=== PATIENT | female | born 1950 | race Caucasian/White ===

== ENCOUNTER 2022-05-12 23:22 | Inpatient (IN) | payer MEDICARE ==
[~2022-05-12] VITALS: Ht 162.6 cm; Wt 114.0 kg
[2022-05-12 23:30] VITALS: BP 121/59
[2022-05-12 23:45] VITALS: BP 102/38
[2022-05-12] MEDS ORDERED: BENZONATATE150 MG PO (23:55)
[2022-05-12] MEDS ORDERED: ALLERGY RELIEF 25 MG PO (23:56)
[2022-05-12] MEDS ORDERED: SERTRALINE50 MG PO (23:57)
[2022-05-12] MEDS ORDERED: ATENOLOL50 MG PO (23:57)
[2022-05-12] MEDS ORDERED: PRAVASTATIN40 MG PO (23:58)
[2022-05-12] MEDS ORDERED: FENOFIBRATE145 MG PO (23:59)
[2022-05-13] VITALS (10 sets, daily range): BP systolic 103–136; BP diastolic 43–82
[2022-05-13] MEDS ORDERED: GLIPIZIDE ER5 MG PO
[2022-05-13] MEDS ORDERED: PIOGLITAZONE HC30 MG PO (00:01)
[2022-05-13] MEDS ORDERED: ELIQUIS5 MG PO (00:02)
[2022-05-13] MEDS ORDERED: VITAMIN C1000 MG (00:03)
[2022-05-13] MEDS ORDERED: VITAMIN D325 MCG PO (00:05)
[2022-05-13] MEDS ORDERED: FISH OIL1000 M2 (00:06)
[2022-05-13 00:23] LABS: BILIRUBIN, TOTAL 0.5 mg/dL (0.0-1.4); CREATININE 1.2 mg/dL (0.5-1.0); MAGNESIUM 1.6 mg/dL (1.6-2.3); POTASSIUM 4.2 mmol/l (3.5-5.1); TOTAL PROTEIN 7.5 g/dL (6.3-8.2)
[2022-05-13 00:54] LABS: BASO% 1.2 % (0-3); HEMATOCRIT 25.7 % (37.0-47.0); HEMOGLOBIN 8.6 g/dl (12.0-16.0); IMMATURE GRANULOCYTES 1.7 % (0.0-5.0); MEAN CELL VOLUME 102.4 fL CALC (80.0-100.0); MEAN CORPUSCULAR HGB 34.3 pG CALC (26.0-32.0); MEAN CORPUSCULAR HGB CONC 33.5 g/dL CAL (32.0-36.0); NEUT# 0.6 thou/uL (2.00-7.15); NEUT% 34.6 % (42-76); RED BLOOD COUNT 2.51 mill/uL (4.20-5.60); RED CELL DISTRI WIDTH 15.8 % (11.5-15.5)
[2022-05-13 01:31] LABS: MONO% 40.5 % (2-13)
[2022-05-13 12:55] LABS: URINE BILIRUBIN - DIPSTICK NEGATIVE (NEGATIVE); URINE BLOOD DIPSTICK TRACE-INTACT (NEGATIVE); URINE COLOR YELLOW; URINE GLUCOSE - DIPSTICK 100 mg/dL (NEGATIVE); URINE KETONE TRACE mg/dL (NEGATIVE); URINE LEUK ESTERASE NEGATIVE (NEGATIVE); URINE PH 5.5 (4.5-8.0); URINE PROTEIN - DIPSTICK 100 mg/dL (NEG-TRACE); URINE SPECIFIC GRAVITY >=1.030
[2022-05-13 13:06] LABS: URINE NITRITE - DIPSTICK NEGATIVE (Negative)
[2022-05-13 13:12] LABS: URINE RBC 0-2 RBC/hpf (0-5); URINE WBC 0-2 WBC/hpf (0-5)
[2022-05-13 13:13] LABS: URINE SQUAMOUS EPITHELIAL CELL FEW EPI/hpf (0-FEW)
[2022-05-14 03:37] VITALS: BP 131/54
[2022-05-14 04:00] VITALS: BP 131/54
[2022-05-14 05:28] LABS: BASO% 0.4 % (0-3); HEMOGLOBIN 8.5 g/dl (12.0-16.0); IMMATURE GRANULOCYTES 1.7 % (0.0-5.0); LYMPH% 14.1 % (15-41); MEAN CORPUSCULAR HGB CONC 32.7 g/dL CAL (32.0-36.0); MONO% 20.9 % (2-13); NEUT# 2.98 thou/uL (2.00-7.15); NEUT% 62.9 % (42-76); RED BLOOD COUNT 2.5 mill/uL (4.20-5.60)
[2022-05-14 05:47] LABS: BUN 38 mg/dL (8-23); BUN/CREATININE RATIO 37 (12-20 (CALC)); CARBON DIOXIDE 19 mmol/l (22-30); CHLORIDE 107 mmol/l (95-108); GFR FOR AFR.AMER. > 60 ML/MIN (>=60 (CALC)); GFR OTHER RACES 55 ML/MIN (>=60 (CALC)); MAGNESIUM 1.9 mg/dL (1.6-2.3); SODIUM 139 mmol/l (137-146)
[2022-05-14 05:48] LABS: ANION GAP 19 (6-22 (CALC)); POTASSIUM 5.5 mmol/l (3.5-5.1)
[2022-05-14 06:15] VITALS: BP 104/49
[2022-05-14 10:22] VITALS: BP 107/49
[2022-05-14 14:46] VITALS: BP 134/44
[2022-05-14 20:23] VITALS: BP 115/46
[2022-05-15] VITALS (36 sets, daily range): BP systolic 71–136; BP diastolic 39–80
[2022-05-15 05:25] LABS: BASO% 0.2 % (0-3); HEMATOCRIT 26.2 % (37.0-47.0); HEMOGLOBIN 8.8 g/dl (12.0-16.0); IMMATURE GRANULOCYTES 2.1 % (0.0-5.0); LYMPH% 6.8 % (15-41); MEAN CELL VOLUME 101.9 fL CALC (80.0-100.0); MEAN CORPUSCULAR HGB 34.2 pG CALC (26.0-32.0); MEAN CORPUSCULAR HGB CONC 33.6 g/dL CAL (32.0-36.0); MONO% 10.6 % (2-13); NEUT# 8.46 thou/uL (2.00-7.15); NEUT% 80.3 % (42-76); RED BLOOD COUNT 2.57 mill/uL (4.20-5.60); RED CELL DISTRI WIDTH 16.3 % (11.5-15.5)
[2022-05-15 05:41] LABS: ANION GAP 16 (6-22 (CALC)); BUN 46 mg/dL (8-23); BUN/CREATININE RATIO 45 (12-20 (CALC)); CHLORIDE 107 mmol/l (95-108); GFR FOR AFR.AMER. > 60 ML/MIN (>=60 (CALC)); GFR OTHER RACES 55 ML/MIN (>=60 (CALC)); POTASSIUM 4.4 mmol/l (3.5-5.1); SODIUM 142 mmol/l (137-146)
[2022-05-15 05:48] LABS: CARBON DIOXIDE 23 mmol/l (22-30)
[2022-05-15] MEDS ORDERED: FOLIC ACID1 MG PO (08:15)
[2022-05-16] VITALS (83 sets, daily range): BP systolic 69–160; BP diastolic 13–78
[2022-05-16 05:28] LABS: BASO% 0.2 % (0-3); IMMATURE GRANULOCYTES 1.9 % (0.0-5.0); LYMPH% 4.9 % (15-41); MEAN CELL VOLUME 107.3 fL CALC (80.0-100.0); MEAN CORPUSCULAR HGB 34.3 pG CALC (26.0-32.0); MONO% 8.3 % (2-13); NEUT# 10.91 thou/uL (2.00-7.15); NEUT% 84.7 % (42-76); RED BLOOD COUNT 2.33 mill/uL (4.20-5.60); RED CELL DISTRI WIDTH 17.3 % (11.5-15.5)
[2022-05-16 08:34] LABS: ALBUMIN 3.6 g/dL (3.2-5.0); BILIRUBIN, TOTAL 0.5 mg/dL (0.0-1.4); CREATININE 2.3 mg/dL (0.5-1.0); TOTAL PROTEIN 6.6 g/dL (6.3-8.2)
[2022-05-16 08:35] LABS: POTASSIUM 5.8 mmol/l (3.5-5.1)
[2022-05-16 17:31] LABS: ALBUMIN 3.6 g/dL (3.2-5.0); CREATININE 2.4 mg/dL (0.5-1.0); POTASSIUM 5.8 mmol/l (3.5-5.1)
[2022-05-16 19:42] LABS: ALBUMIN 3.6 g/dL (3.2-5.0); CREATININE 3.3 mg/dL (0.5-1.0)
[2022-05-16 19:54] LABS: POTASSIUM 6.1 mmol/l (3.5-5.1)
[2022-05-17] VITALS (190 sets, daily range): BP systolic 57–143; BP diastolic 29–74
[2022-05-17 08:36] LABS: HEMATOCRIT 21.4 % (37.0-47.0); HEMOGLOBIN 7.2 g/dl (12.0-16.0); MEAN CELL VOLUME 102.4 fL CALC (80.0-100.0); MEAN CORPUSCULAR HGB 34.4 pG CALC (26.0-32.0); MEAN CORPUSCULAR HGB CONC 33.6 g/dL CAL (32.0-36.0); PLATELET COUNT 314 thou/uL (130-400); RED BLOOD COUNT 2.09 mill/uL (4.20-5.60); RED CELL DISTRI WIDTH 16.2 % (11.5-15.5)
[2022-05-17 09:10] LABS: IMMATURE GRANULOCYTES 6.7 % (0.0-5.0)
[2022-05-17 09:11] LABS: BAND 0 % (0-8); MANUAL DIFFERENTIAL YES
[2022-05-17 09:12] LABS: PLATELET ESTIMATE NORMAL
[2022-05-17 09:50] LABS: ALBUMIN 2.9 g/dL (3.2-5.0); CHLORIDE 103 mmol/l (95-108); CREATININE 3.1 mg/dL (0.5-1.0); GFR FOR AFR.AMER. 18 ML/MIN (>=60 (CALC)); GFR OTHER RACES 15 ML/MIN (>=60 (CALC)); MAGNESIUM 2.1 mg/dL (1.6-2.3); TOTAL PROTEIN 5.7 g/dL (6.3-8.2)
[2022-05-17 09:53] LABS: BUN/CREATININE RATIO 29 (12-20 (CALC)); SODIUM 133 mmol/l (137-146)
[2022-05-17 09:54] LABS: ALKALINE PHOSPHATASE 190 u/l (38-126); ANION GAP 18 (6-22 (CALC)); CARBON DIOXIDE 18 mmol/l (22-30); POTASSIUM 5.6 mmol/l (3.5-5.1)
[2022-05-17 09:55] LABS: BUN 91 mg/dL (8-23)
[2022-05-17 10:09] LABS: SGOT/AST 810 u/l (9-36)
[2022-05-17 18:44] LABS: CREATININE 2.7 mg/dL (0.5-1.0); POTASSIUM 4.7 mmol/l (3.5-5.1)
[2022-05-18] VITALS (49 sets, daily range): BP systolic 102–134; BP diastolic 50–85
[2022-05-18 05:55] LABS: HEMOGLOBIN 7.2 g/dl (12.0-16.0); MEAN CORPUSCULAR HGB 34.3 pG CALC (26.0-32.0); MEAN CORPUSCULAR HGB CONC 34.3 g/dL CAL (32.0-36.0); RED BLOOD COUNT 2.1 mill/uL (4.20-5.60); RED CELL DISTRI WIDTH 16.5 % (11.5-15.5)
[2022-05-18 06:29] LABS: ALBUMIN 3.3 g/dL (3.2-5.0); CREATININE 2.8 mg/dL (0.5-1.0); MAGNESIUM 2.4 mg/dL (1.6-2.3); POTASSIUM 4.7 mmol/l (3.5-5.1)
[2022-05-18 06:43] LABS: TOTAL PROTEIN 6.9 g/dL (6.3-8.2)
[2022-05-19] VITALS (49 sets, daily range): BP systolic 93–132; BP diastolic 50–79
[2022-05-19 06:32] LABS: ALBUMIN 2.7 g/dL (3.2-5.0); BILIRUBIN, TOTAL 1.1 mg/dL (0.0-1.4); CREATININE 2.5 mg/dL (0.5-1.0); MAGNESIUM 2.2 mg/dL (1.6-2.3); POTASSIUM 5.1 mmol/l (3.5-5.1)
[2022-05-19 06:35] LABS: TOTAL PROTEIN 5.4 g/dL (6.3-8.2)
[2022-05-19 06:46] LABS: BASO% 0.1 % (0-3); HEMATOCRIT 20.3 % (37.0-47.0); HEMOGLOBIN 7.4 g/dl (12.0-16.0); LYMPH% 3.4 % (15-41); MEAN CORPUSCULAR HGB 36.8 pG CALC (26.0-32.0); MEAN CORPUSCULAR HGB CONC 36.5 g/dL CAL (32.0-36.0); MONO% 7.9 % (2-13); NEUT# 16.44 thou/uL (2.00-7.15); RED BLOOD COUNT 2.01 mill/uL (4.20-5.60); RED CELL DISTRI WIDTH 17.8 % (11.5-15.5)
[2022-05-19 06:48] LABS: IMMATURE GRANULOCYTES 6.6 % (0.0-5.0)
[2022-05-20] VITALS (77 sets, daily range): BP systolic 95–131; BP diastolic 44–76
[2022-05-20 04:29] LABS: BASO% 0.1 % (0-3); HEMATOCRIT 20.8 % (37.0-47.0); HEMOGLOBIN 8.6 g/dl (12.0-16.0); LYMPH% 5.3 % (15-41); MEAN CELL VOLUME 101.5 fL CALC (80.0-100.0); MEAN CORPUSCULAR HGB CONC 41.3 g/dL CAL (32.0-36.0); MONO% 6.5 % (2-13); NEUT# 22.08 thou/uL (2.00-7.15); NEUT% 77.9 % (42-76); RED BLOOD COUNT 2.05 mill/uL (4.20-5.60); RED CELL DISTRI WIDTH 18.2 % (11.5-15.5)
[2022-05-20 04:30] LABS: IMMATURE GRANULOCYTES 10.2 % (0.0-5.0)
[2022-05-20 05:27] LABS: ALBUMIN 2.7 g/dL (3.2-5.0); CREATININE 2.1 mg/dL (0.5-1.0); MAGNESIUM 2.2 mg/dL (1.6-2.3); TOTAL PROTEIN 5.3 g/dL (6.3-8.2)
[2022-05-20 06:06] LABS: POTASSIUM 5.3 mmol/l (3.5-5.1)
[2022-05-20 07:22] LABS: C-REACTIVE PROTEIN 15.8 mg/dL (0-0.9)
[2022-05-21] VITALS (103 sets, daily range): BP systolic 77–192; BP diastolic 40–90
[2022-05-21 07:45] LABS: HEMATOCRIT 20.7 % (37.0-47.0); HEMOGLOBIN 8.3 g/dl (12.0-16.0); MEAN CELL VOLUME 107.3 fL CALC (80.0-100.0); MEAN CORPUSCULAR HGB CONC 40.1 g/dL CAL (32.0-36.0); PLATELET COUNT 297 thou/uL (130-400); RED BLOOD COUNT 1.93 mill/uL (4.20-5.60); RED CELL DISTRI WIDTH 17.7 % (11.5-15.5)
[2022-05-21 07:52] LABS: IMMATURE GRANULOCYTES 13.4 % (0.0-5.0); MANUAL DIFFERENTIAL YES
[2022-05-21 08:00] LABS: BAND 13 % (0-8)
[2022-05-21 08:11] LABS: ALBUMIN 2.7 g/dL (3.2-5.0); BILIRUBIN, TOTAL 1.3 mg/dL (0.0-1.4); CREATININE 1.9 mg/dL (0.5-1.0); TOTAL PROTEIN 5.9 g/dL (6.3-8.2)
[2022-05-21 09:07] LABS: POTASSIUM 6.2 mmol/l (3.5-5.1)
[2022-05-22] VITALS (98 sets, daily range): BP systolic 88–162; BP diastolic 38–77
[2022-05-22 06:44] LABS: HEMATOCRIT 20.6 % (37.0-47.0); HEMOGLOBIN 8.3 g/dl (12.0-16.0); MEAN CELL VOLUME 107.3 fL CALC (80.0-100.0); MEAN CORPUSCULAR HGB 43.2 pG CALC (26.0-32.0); MEAN CORPUSCULAR HGB CONC 40.3 g/dL CAL (32.0-36.0); PLATELET COUNT 216 thou/uL (130-400); RED BLOOD COUNT 1.92 mill/uL (4.20-5.60); RED CELL DISTRI WIDTH 18.9 % (11.5-15.5)
[2022-05-22 06:45] LABS: ALBUMIN 2.5 g/dL (3.2-5.0); BILIRUBIN, TOTAL 1.2 mg/dL (0.0-1.4); CREATININE 2.2 mg/dL (0.5-1.0); IMMATURE GRANULOCYTES 11.6 % (0.0-5.0); MAGNESIUM 2.3 mg/dL (1.6-2.3); MANUAL DIFFERENTIAL YES; TOTAL PROTEIN 5.3 g/dL (6.3-8.2)
[2022-05-22 06:53] LABS: POTASSIUM 6.6 mmol/l (3.5-5.1)
[2022-05-22 07:03] LABS: BAND 3 % (0-8); NUCLEATED RED BLOOD CELL 13 /100WBC (0-1)
[2022-05-22 07:05] LABS: MANUAL DIFFERENTIAL YES
[2022-05-22 07:21] LABS: BAND 3 % (0-8)
[2022-05-22 07:22] LABS: NUCLEATED RED BLOOD CELL 13 /100WBC (0-1)
[2022-05-22 07:23] LABS: IMMATURE CELLS 0 %
[2022-05-22 07:24] LABS: IMMATURE CELLS 0 %
[2022-05-22 11:26] LABS: CREATININE 2.3 mg/dL (0.5-1.0)
[2022-05-22 11:36] LABS: POTASSIUM 6.7 mmol/l (3.5-5.1)
[2022-05-22 18:05] LABS: ALBUMIN 2.4 g/dL (3.2-5.0); CREATININE 2.6 mg/dL (0.5-1.0)
[2022-05-22 18:12] LABS: POTASSIUM 6.5 mmol/l (3.5-5.1)
[2022-05-23] VITALS (19 sets, daily range): BP systolic 78–117; BP diastolic 37–59
== END 2022-05-23 04:49 | disposition expired | DRG 870 ==
LOC: ED 23:22 → ED-I 05-13 00:30 → ED 05-13 01:08 → MS2 05-13 01:09 → ICU 05-13 09:34 → MS2 05-13 09:35 → ICU 05-15 14:30
PROVIDERS: Family Medicine; Internal Medicine; Internal Medicine Nephrology; Nurse Practitioner Family; ADMIT Internal Medicine; ATTEND Internal Medicine
PROC: 5A09357 Assistance with Respiratory Ventilation, Less than 24 Consecutive Hours, Continuous Positive Airway Pressure (ICD-10-PCS; principal; 2022-05-15)
PROC: 5A1955Z Respiratory Ventilation, Greater than 96 Consecutive Hours (ICD-10-PCS; 2022-05-16)
PROC: 5A12012 Performance of Cardiac Output, Single, Manual (ICD-10-PCS; 2022-05-16)
PROC: 0BH17EZ Insertion of Endotracheal Airway into Trachea, Via Natural or Artificial Opening (ICD-10-PCS; 2022-05-16)
PROC: 0T9B70Z Drainage of Bladder with Drainage Device, Via Natural or Artificial Opening (ICD-10-PCS; 2022-05-16)
PROC: 3E043XZ Introduction of Vasopressor into Central Vein, Percutaneous Approach (ICD-10-PCS; 2022-05-16)
PROC: 02HV33Z Insertion of Infusion Device into Superior Vena Cava, Percutaneous Approach (ICD-10-PCS; 2022-05-17)
DX: A41.9 Sepsis, unspecified organism (principal); J18.9 Pneumonia, unspecified organism; N17.0 Acute kidney failure with tubular necrosis; J80 Acute respiratory distress syndrome; R65.21 Severe sepsis with septic shock; E88.3 Tumor lysis syndrome; C34.90 Malignant neoplasm of unspecified part of unspecified bronchus or lung; C79.51 Secondary malignant neoplasm of bone; J91.0 Malignant pleural effusion; E87.20 Acidosis, unspecified; I46.9 Cardiac arrest, cause unspecified; E86.9 Volume depletion, unspecified; E87.5 Hyperkalemia; D70.1 Agranulocytosis secondary to cancer chemotherapy; T45.1X5A Adverse effect of antineoplastic and immunosuppressive drugs, initial encounter; G89.3 Neoplasm related pain (acute) (chronic); E83.51 Hypocalcemia; D64.9 Anemia, unspecified; E83.39 Other disorders of phosphorus metabolism; E11.65 Type 2 diabetes mellitus with hyperglycemia; I69.318 Other symptoms and signs involving cognitive functions following cerebral infarction; F01.50 Vascular dementia, unspecified severity, without behavioral disturbance, psychotic disturbance, mood disturbance, and anxiety; K72.90 Hepatic failure, unspecified without coma; F41.9 Anxiety disorder, unspecified; Z79.84 Long term (current) use of oral hypoglycemic drugs; Z90.2 Acquired absence of lung [part of]; Z91.041 Radiographic dye allergy status; Z66 Do not resuscitate; Z20.822 Contact with and (suspected) exposure to COVID-19
CPT/HCPCS: J0692; J2060; J3370; S0164